=== PATIENT | female | born 1955 | race Caucasian/White ===

== ENCOUNTER 2016-03-01 08:18 | Outpatient (CLI) | payer BC ==
[~2016-03-01 08:18] MED LIST: ATEN25TA PO; BIESTROGEN PO; CLID1CAP PO; CLIN300C97 PO; MELO-264 PO; MUPI15CR TP; PRAS1TAB4 PO; PREGNENOLONE PO; PROGESTERONE SL; TESTOSTERONE TP; [UNRECOGNIZED DRUG - OTHER] PO
== END 2016-03-01 23:59 | disposition home or self-care (01) ==
LOC: WOU 08:18
PROVIDERS: ATTEND Podiatrist Foot & Ankle Surgery
DX: I83.893 Varicose veins of bilateral lower extremities with other complications (principal); Z72.0 Tobacco use; I83.813 Varicose veins of bilateral lower extremities with pain
CPT/HCPCS: G0463

== ENCOUNTER 2016-06-01 10:02 | Outpatient (CLI) | payer BC | END 2016-06-01 23:59 | disposition home or self-care (01) | LOC: WOU 10:02 | PROVIDERS: ATTEND Podiatrist Foot & Ankle Surgery | DX: I83.12 Varicose veins of left lower extremity with inflammation (principal); I83.11 Varicose veins of right lower extremity with inflammation; I83.893 Varicose veins of bilateral lower extremities with other complications; I10 Essential (primary) hypertension; F32.9 Major depressive disorder, single episode, unspecified; Z72.0 Tobacco use; I70.209 Unspecified atherosclerosis of native arteries of extremities, unspecified extremity | CPT/HCPCS: G0463 ==

== ENCOUNTER 2022-03-05 15:33 | Emergency (ER) | payer BC ==
[~2022-03-05] VITALS: Ht 170.2 cm; Wt 59.0 kg
[~2022-03-05 15:33] MED LIST changes: +CLIN300C12 PO; -CLIN300C97 PO; +MELO-107 PO; -MELO-264 PO
--- NOTE | 2022-03-05 15:33 | NUR ---
BIBS C/O SIDE EFFECTS FROM TAKING AMLODIPINE, PMD SUGGESTED FOR HER TO GET LAB WORK DONE AND C/O MUSCLE TIGHNESS. PT STOPPED TAKING MEDICATION 02/24
[2022-03-05 17:34] LABS: BASOPHILS % (AUTO) 0.7 % (0.0-2.0); EOSINOPHILS % (AUTO) 2.1 % (0.0-6.0); HEMATOCRIT 46 % (33-45); HEMOGLOBIN 15.2 g/dL (11.5-14.8); LYMPHOCYTES % (AUTO) 29.4 % (20.0-44.0); MEAN CORPUSCULAR HGB CONC 33 g/dl (31.0-36.0); MEAN CORPUSCULAR VOLUME 97 fL (82-100); MONOCYTES # (AUTO) 0.6 K/uL (0.1-1.30); MONOCYTES % (AUTO) 8.8 % (2.0-12.0); PLATELET COUNT (AUTO) 159 K/uL (150-450); RED BLOOD CELL COUNT(AUTO) 4.74 MIL/uL (4.0-5.2); WHITE BLOOD COUNT (AUTO) 6.8 K/uL (4.3-11.0)
[2022-03-05 17:51] LABS: ALBUMIN 3.8 g/dL (3.4-5.0); BILIRUBIN,DIRECT 0.1 mg/dL (0.0-0.2); BILIRUBIN,TOTAL 0.3 mg/dL (0.2-1.0); CALCIUM, SERUM 8.8 mg/dL (8.5-10.1); CREATININE 0.7 mg/dL (0.6-1.3); POTASSIUM 4.5 mmol/L (3.5-5.1); TOTAL PROTEIN, SERUM 6.8 g/dL (6.4-8.2)
--- NOTE | 2022-03-05 18:12 | NUR ---
URINE SAMPLE SENT TO LAB
[2022-03-05 18:47] LABS: BILIRUBIN,URINE NEGATIVE (NEGATIVE); COLOR,URINE YELLOW (YELLOW); LEUKOCYTE ESTERASE ,URINE NEGATIVE (NEGATIVE); NITRITE, URINE NEGATIVE (NEGATIVE); PH,URINE 6.5 (5.0-8.0); PROTEIN,URINE NEGATIVE (NEGATIVE); UGLUCOSE NEGATIVE (NEGATIVE); UROBILINOGEN,URINE 0.2 EU/dL (0.2)
--- NOTE | 2022-03-05 19:59 | NUR ---
Patient discharged to home in stable condition. Written and verbal after care instructions given. Patient verbalizes understanding of instruction.
[2022-03-05 20:31] VITALS: BP 168/77
== END 2022-03-05 20:32 | disposition home or self-care (01) ==
LOC: ER 15:38
DX: M79.10 Myalgia, unspecified site (principal); R82.998 Other abnormal findings in urine; I10 Essential (primary) hypertension; Z88.0 Allergy status to penicillin; Z88.2 Allergy status to sulfonamides; Z88.1 Allergy status to other antibiotic agents; Z88.8 Allergy status to other drugs, medicaments and biological substances; Z79.899 Other long term (current) drug therapy
CPT/HCPCS: 36415; 80048-TC; 80076-TC; 82550-TC; 84484-TC; 85025-TC